=== PATIENT | female | born 1950 | race Caucasian/White ===

== ENCOUNTER → 2016-11-07 08:15 | Outpatient (CLI) | payer MEDICARE, OTHER ==
[2016-11-07 08:38] LABS: BASOPHILS 0.8 % (0-2); EOSINOPHILS 3.2 % (0-7); HEMATOCRIT 39.8 % (36.0-48.0); HEMOGLOBIN 13.4 g/dL (12-16); MCH 32.2 pg (26.0-34.0); MCHC 33.7 g/dL (31.0-37.0); MCV 95.7 fL (80.0-100.0); MONOCYTES 12.3 % (2-11); NEUTROPHILS 48.7 % (40-80); PLATELET COUNT 179 10x3/uL (130-400); RBC 4.16 10x6/uL (4.00-5.40); RDW 12.3 % (11.5-14.5); WBC 3.7 10x3/uL (4.8-10.8)
[2016-11-07 09:09] LABS: ALBUMIN 3.8 g/dL (3.4-5.0); ANION GAP 11.9 mmol/L (8-16); BILIRUBIN - TOTAL 0.51 mg/dL (0.2-1.3); CALCIUM 9.1 mg/dL (8.5-10.1); CARBON DIOXIDE 27.9 mmol/L (21.0-32.0); CHOL - HDL RATIO 2.3 ratio (2.3-4.1); LDL-HDL RATIO 1.2 ratio (1.5-3.5); POTASSIUM - SERUM 3.8 mmol/L (3.5-5.1); PROTEIN - SERUM 7.4 g/dL (6.4-8.2); THYROID STIMULATING HORMONE 2.17 uIU/mL (0.36-3.74)
== END | disposition home or self-care (01) ==
LOC: D.LAB 08:15
PROVIDERS: Family Medicine
DX: Z00.00 Encounter for general adult medical examination without abnormal findings (principal); E78.3 Hyperchylomicronemia; I10 Essential (primary) hypertension; R55 Syncope and collapse

== ENCOUNTER → 2016-11-30 09:19 | Outpatient (CLI) | payer MEDICARE, OTHER | END | disposition home or self-care (01) | LOC: D.CN 09:19 | DX: R40.4 Transient alteration of awareness (principal) ==

== ENCOUNTER → 2017-07-02 12:45 | Outpatient (CLI) | payer MEDICARE, OTHER | END | disposition home or self-care (01) | LOC: D.MRI 12:45 | DX: M54.6 Pain in thoracic spine (principal); M54.5 Low back pain ==

== ENCOUNTER → 2017-12-28 14:30 | Outpatient (CLI) | payer MEDICARE, OTHER | END | disposition left against medical advice (07) | LOC: D.MAMMO 14:30 | DX: Z12.31 Encounter for screening mammogram for malignant neoplasm of breast (principal) ==

== ENCOUNTER → 2018-01-21 12:47 | Outpatient (CLI) | payer MEDICARE, OTHER ==
[2018-01-21 13:47] LABS: ANION GAP 9.6 mmol/L (8-16); BILIRUBIN - TOTAL 0.31 mg/dL (0.2-1.3); CALCIUM 8.7 mg/dL (8.5-10.1); CARBON DIOXIDE 28.3 mmol/L (21.0-32.0); CHOL - HDL RATIO 2.2 ratio (2.3-4.1); CREATININE - SERUM 0.9 mg/dL (0.6-1.3); POTASSIUM - SERUM 3.9 mmol/L (3.5-5.1); PROTEIN - SERUM 7.2 g/dL (6.4-8.2); THYROID STIMULATING HORMONE 2.06 uIU/mL (0.36-3.74)
[2018-01-21 14:48] LABS: ERYTHROCYTE SEDIMENTATION RATE 5 mm/hr (0-30)
[2018-01-21 14:51] LABS: BASOPHILS 0.7 % (0-2); EOSINOPHILS 1.7 % (0-7); HEMATOCRIT 37.4 % (36.0-48.0); HEMOGLOBIN 12.5 g/dL (12-16); LYMPHOCYTES 33.3 % (15-50); MCH 32.5 pg (26.0-34.0); MCHC 33.4 g/dL (31.0-37.0); MCV 97.1 fL (80.0-100.0); MEAN PLATELET VOLUME 11.3 fL (7.4-10.4); MONOCYTES 9.2 % (2-11); NEUTROPHILS 55.1 % (40-80); PLATELET COUNT 173 10x3/uL (130-400); RBC 3.85 10x6/uL (4.00-5.40); RDW 12.4 % (11.5-14.5); WBC 5.4 10x3/uL (4.8-10.8)
[2018-01-22 09:18] LABS: FOLATE (FOLIC ACID) - SERUM 19.7 ng/mL (>3.0)
== END | disposition home or self-care (01) ==
LOC: D.LAB 12:47
PROVIDERS: Family Medicine
DX: I10 Essential (primary) hypertension (principal); L65.9 Nonscarring hair loss, unspecified; M25.512 Pain in left shoulder; M25.511 Pain in right shoulder; E78.5 Hyperlipidemia, unspecified; M79.1 Myalgia

== ENCOUNTER 2019-02-18 09:09 | Outpatient (CLI) | payer MEDICARE, OTHER | END 2019-02-18 23:59 | disposition home or self-care (01) | LOC: D.MAMMO 09:09 | PROVIDERS: ATTEND Family Medicine | DX: Z12.31 Encounter for screening mammogram for malignant neoplasm of breast (principal) ==

== ENCOUNTER → 2019-11-12 11:12 | Outpatient (CLI) | payer MEDICARE, OTHER ==
[~2019-11-12 11:12] MED LIST: LIPITOR10 MG PO; LISINOPRIL10 MG PO; PRINIVIL10 MG PO; VERELAN180 MG PO
[2019-11-14 10:41] VITALS: BMI 23.9
== END | disposition home or self-care (01) ==
LOC: D.LABREF 11:12
PROVIDERS: ATTEND Internal Medicine Pulmonary Disease
DX: Z11.59 Encounter for screening for other viral diseases (principal)

== ENCOUNTER 2019-11-14 10:20 | Day surgery (SDC) | payer MEDICARE, OTHER ==
[2019-11-13 11:00] LABS: HEMATOCRIT 40.6 % (36.0-48.0); HEMOGLOBIN 13.2 g/dL (12-16); MCH 31.9 pg (26.0-34.0); MCHC 32.5 g/dL (31.0-37.0); MCV 98.1 fL (80.0-100.0); MEAN PLATELET VOLUME 10.8 fL (7.4-10.4); RBC 4.14 10x6/uL (4.00-5.40); RDW 12.8 % (11.5-14.5); WBC 4.7 10x3/uL (4.8-10.8)
[~2019-11-14] VITALS: Ht 160 cm; Wt 61.2 kg
--- NOTE | ~2019-11-14 | OP ---
PATIENT NAME: JULIO C WONG MEDICAL RECORD: [id number] :52 LOCATION:D[facility] ADMISSION DATE: SURGEON: JORDEN CUELLAR DATE OF OPERATION: 11/14/2019 SURGEON: Jorden Cuellar DPM PREOPERATIVE DIAGNOSIS: Plantar fasciitis, left foot. POSTOPERATIVE DIAGNOSIS: Plantar fasciitis, left foot. PROCEDURE: Partial plantar fasciotomy, left foot. ANESTHESIA: Local with monitored anesthesia care. HEMOSTASIS: Pneumatic ankle tourniquet inflated to 250 mmHg. ESTIMATED BLOOD LOSS: Minimal. MATERIALS: 3-0 Vicryl, 4-0 nylon. INJECTABLES: 10 cc of 0.5% Marcaine plain. INDICATIONS: The patient has a longstanding history of pain associated with the left heel. She has failed to improve with conservative measures. She is here today for surgical correction. We again reviewed the risks and benefits of the procedure. Complications were discussed. All questions were answered. She was appropriately consented for the above-mentioned procedure. DESCRIPTION OF PROCEDURE: The patient was brought into the operating room and placed on the operating table in supine position. A timeout was called with Dr. Cuellar, who identified the patient, the surgical site, and surgery to be performed. Once appropriate anesthesia was obtained, the foot was prepped and draped in the usual aseptic manner. The pneumatic ankle tourniquet was inflated to 250 mmHg on the well-padded left ankle. Attention was directed to the plantar surface of the left foot where a 2-cm linear incision was made over the medial calcaneal tubercle area. This incision was carried deep to soft tissue with care being taken to retract all vital neurovascular structures. All bleeders were cauterized along the way. Next, utilizing blunt dissection, dissection was carried down to the level of the plantar fascia. Next, utilizing a fresh 15 blade, the medial half of the plantar fascia was sharply transected. The plantar fascia was then inspected for any remaining tight bands and none were noted. The surgical site was then irrigated with copious amounts of normal sterile saline via bulb syringe. The subQ structures were then reapproximated and coapted using 3-0 Vicryl and skin was then reapproximated and coapted using 4-0 nylon. A dressing consisting of Xeroform, 4 x 4's, Kerlix, and Toni bandage was applied to the left foot. The pneumatic ankle tourniquet was deflated and capillary refill time is immediate to all digits of the left foot. The patient will be discharged home with instructions to ice and elevate the left foot. She was dispensed a boot to further help offload the area. She has OPERATIVE REPORT [id number] JULIO C WONG my cell phone number for any afterhours difficulties and there were no complications with this. We will follow up with her in 1 week. TRANSINT:[id number] Voice Confirmation ID: [id number] DOCUMENT ID: [id number] JORDEN CUELLAR CC: [id number] DICTATION DATE: 11/14/19 1433 COMPUTER SUPPORT ANALYST: 11/15/19 0034 [facility] [place] 11/14/19 [id number] [place] [address]
[~2019-11-14 10:20] MED LIST changes: -PRINIVIL10 MG PO
[2019-11-14] MEDS ORDERED: PRINIVIL10 MG PO (10:39)
[2019-11-14 10:41] VITALS: BP 149/77; Ht 160 cm; Wt 61.2 kg
== END 2019-11-14 14:50 | disposition home or self-care (01) ==
LOC: D.OPS 10:20 → D.PAN 12:45 → D.OPS 14:50
PROVIDERS: Anesthesiology; ATTEND Podiatrist
DX: M72.2 Plantar fascial fibromatosis (principal)

== ENCOUNTER 2020-03-23 15:30 | Outpatient (CLI) | payer MEDICARE, OTHER ==
[2019-11-14 10:41] VITALS: BMI 23.9
[~2020-03-23 15:30] MED LIST changes: +PRINIVIL10 MG PO
== END 2020-03-23 23:59 | disposition home or self-care (01) ==
LOC: D.MAMMO 15:30
PROVIDERS: ATTEND Family Medicine
DX: Z12.31 Encounter for screening mammogram for malignant neoplasm of breast (principal)

== ENCOUNTER → 2020-10-12 14:46 | Outpatient (CLI) | payer MEDICARE, OTHER ==
[2019-11-14 10:41] VITALS: BMI 23.9
== END | disposition home or self-care (01) ==
LOC: D.MRI 14:46
PROVIDERS: ATTEND Psychiatry & Neurology Neurology
DX: R41.3 Other amnesia (principal)